=== PATIENT | male | born 1970 | race Caucasian/White ===

== ENCOUNTER 2021-09-28 20:00 | Emergency (ER) | payer OTHER ==
[2021-09-28 20:07] VITALS: BP 128/77; PULSE 77; TEMP 97; BMI 22.8
[2021-09-28] MEDS ORDERED: APIXABAN 5 MG TABLET PO ONE (20:59)
[2021-09-28] MEDS ORDERED: APIXABAN 5 MG TABLET ONE (21:17)
[2021-09-28 21:23] LABS: BASO % 0.4 % (0-2.0); EOS % 0.7 % (0-4.5); HEMATOCRIT 38.4 % (35.4-49); HEMOGLOBIN 13.5 GM/dL (11.7-16.9); LYMPH % 30.3 % (8-40); MCH 32.5 pg (25.7-33.7); MCHC 35.1 g/dl (32.0-35.9); MEAN CELL VOLUME 92.4 fl (80-96); MEAN PLT VOLUME 6.5 fl (7.5-11.1); MONO % 5.9 % (3.8-10.2); NEUT % 62.7 % (42.8-82.8); PLATELET COUNT 327 10^3/uL (134-434); RBC 4.16 M/mm3 (4.00-5.60); RDW 12.7 % (11.9-15.9); WHITE BLOOD COUNT 6.7 K/mm3 (4.0-10.0)
[2021-09-28 21:46] LABS: CALCIUM 8.7 mg/dL (8.5-10.1)
[2021-09-28 21:47] LABS: BLOOD UREA NITROGEN 12.9 mg/dL (7-18)
[2021-09-28 21:50] LABS: CREATININE 0.9 mg/dL (0.55-1.3)
[2021-09-28 21:51] LABS: BILIRUBIN,TOTAL 0.5 mg/dL (0.2-1); TOT PROT 7.4 g/dl (6.4-8.2)
== END 2021-09-28 22:45 | disposition home or self-care (01) ==
LOC: JER 20:00
DX: I82.451 Acute embolism and thrombosis of right peroneal vein (principal)
CPT/HCPCS: 36415; 80053; 85025; 99283-25

== ENCOUNTER 2022-09-12 04:09 | Day surgery (SDC) | payer OTHER ==
[2022-09-12 09:51] VITALS: BMI 23.1
[2022-09-12] MEDS ORDERED: BACITRACIN ZINC 15 GM TUBE TOPICAL OINTMENT ONE (10:45)
[2022-09-12] MEDS ORDERED: PROPOFOL 20 ML ONE (11:06)
[2022-09-12] MEDS ORDERED: FENTANYL CITRATE/PF 50 MCG/ML VIAL ONE ×2 (11:06→12:37)
[2022-09-12] MEDS ORDERED: ONDANSETRON 4 MG/2 ML VIAL ONE (11:06)
[2022-09-12] MEDS ORDERED: DEXAMETHASONE SOD PHOSPHATE 4 MG/1 ML VIAL ONE (11:06)
[2022-09-12] MEDS ORDERED: LIDOCAINE HCL/PF 2% SDV 5ML VIAL ONE (11:08)
[2022-09-12] MEDS ORDERED: ceFAZolin SODIUM 1 GM VIAL IVPB ONE (11:25)
[2022-09-12] MEDS ORDERED: ceFAZolin SODIUM 1 GM VIAL ONE (11:26)
[2022-09-12] MEDS ORDERED: LIDOCAINE HCL 1%, 10 MG/ML (20ML VIAL) NR ONE (11:51)
[2022-09-12] MEDS ORDERED: BACITRACIN ZINC 15 GM TUBE TOPICAL OINTMENT TP ONE (11:57)
[2022-09-12] MEDS ORDERED: oxyCODONE HCL 5 MG TABLET PO PRN ×3 (12:07→12:14)
[2022-09-12] MEDS ORDERED: ONDANSETRON 4 MG/2 ML VIAL IVPUSH PRN (12:14)
[2022-09-12] MEDS ORDERED: DEXTROSE 5%-0.45% SALINE 1,000 ML IV SCH (12:15)
[2022-09-12] MEDS ORDERED: LACTATED RINGERS SOLUTION 1,000 ML IV SCH (12:15)
[2022-09-12 13:33] VITALS: PULSE 50
[2022-09-12] MEDS ORDERED: oxyCODONE HCL 5 MG TABLET ONE (14:11)
[2022-09-12 15:00] VITALS: BP 100/63; RESP 18; TEMP 97.9
== END 2022-09-12 15:11 | disposition home or self-care (01) ==
LOC: JASU-SURG 04:09
PROVIDERS: ATTEND Urology
PROC: 0VBJ0ZZ Excision of Right Epididymis, Open Approach (ICD-10-PCS; principal; 2022-09-12 11:00)
DX: N43.40 Spermatocele of epididymis, unspecified (principal)
CPT/HCPCS: 88304-TC; 94760